=== PATIENT | male | born 1985 | race Caucasian/White ===

== ENCOUNTER 2019-05-07 15:17 | Inpatient (IN) | payer MEDICAID, SELFPAY ==
[2019-05-07] VITALS (14 sets, daily range): BP systolic 116–155; BP diastolic 73–104; PULSE 92–125; RESP 14–22; TEMP 36.3–37.6; O2SAT 94–100; BMI 30.6; BMI 30.7
--- NOTE | 2019-05-07 15:31 | EKG12_ITS ---
Test Reason : OVERDOSE Blood Pressure : / mmHG Vent. Rate : 115 BPM Atrial Rate : 115 BPM P-R Int : 158 ms QRS Dur : 102 ms QT Int : 322 ms P-R-T Axes : 048 013 036 degrees QTc Int : 445 ms Sinus tachycardia Nonspecific T wave abnormality Abnormal ECG Confirmed by MAGDIEL DINERO ([id number]), photo editor TAMIR QUINONEZ ([id number]) on 05/11/2019 1:18:30 PM Referred By: JESSICA Confirmed By:MAGDIEL DINERO
--- NOTE | 2019-05-07 15:32 | NURSING ---
NO OLD EKGS
--- NOTE | 2019-05-07 15:37 | ED.DCSUM_ITS ---
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 Relieved by: Nothing Associated Symptoms: Patient has no complaints Narrative: Patient was recent seen in the emergency room for suicidal ideation and admitted to [facility]. He was released from [facility]. He states he is taken 25 Neurontin in the past with no adverse effect. He states he took the pills today over 4 to 5 hours. He voices no suicidal intent. He does admit he was admitted to [facility] for suicidal ideation. Difficult to assess patient because of his altered mental status and slurred speech. He does arouse to verbal communication. He presently has no complaints. Prior similar symptoms: Yes Recent Illness/Hospitalization: Yes Capacity - Capacity Assessment Tool Can the patient make a choice & communicate that choice?: No Can the patient understand benefits, risks and alternatives?: No - Patient has been told numerous times he cannot receive Ativan because his level of conscious depressed. He is been told he cannot stand because he was found staggering because of the amount of medicine he took. Patient has attempted to negotiate several times and does not comprehend the seriousness of his illness. Can the patient make a logical, rational choice?: No - Should not states because he stayed in bed he deserves Ativan. Is the choice the patient makes consistent w/ their values?: Unable to Determine Is there an impending, emergent risk to the patient?: No Does the patient have an Advance Directive?: No Is there a Surrogate Available?: No i.e. HCPOA: No i.e. close relative (spouse, child, parent, sibling)?: No - Patient is homeless presently residing at the [facility] - Past Medical History (1) Depression with suicidal ideation Status: Acute Past Medical History - Allergies and Home Meds Allergies/Adverse Reactions: Allergies No Known Allergies Allergy (Verified 05/07/19 15:28) Primary Care Physician: Care Physician,No Primary [Primary Care Provider] - Past Medical History: - - Psychiatric illness Lives: Alone, - - Residing at the [facility] Smoking Status: Current every day smoker Alcohol: Rare Drugs: - - Patient denies Review of Systems ROS: Unable to Obtain - Altered level of conscious secondary to accidental ingestion. Patient denies everything. He states his heart rates been up to 170 and I should not be concerned that it is 1 20-1 30. Physical Exam Vital Signs/Narrative: Vital Signs Temp Pulse Resp BP Pulse Ox 05/07/19 15:18 99.7 F H 120 H 22 H 155/92 H 97 05/07/19 15:17 125 H 22 H 155/92 H 97 Inital Vital Signs reviewed: Yes General: Well nourished, Well developed, No Acute Distress Head: Normocephalic, Atraumatic Eyes: Perrl, EOMI, - - Horizontal nystagmus noted. Negative for: Pale conju nctiva, Scleral icterus ENT: No rhinorrhea, TM's clear, Dry mucous membranes Neck: Supple, Nontender Cardiovascular: Regular rhythm, No murmurs, Normal S1, Tachycardia Respiratory: No distress, CTA bilaterally, Chest nontender Abdomen: Soft, Nontender, Nondistended, Normal bowel sounds Rectal: Deferred Back: Nontender, Normal Inspection Extremities: Nontender, No edema Skin: Normal color, No rash Neurological: Cranial nerves II-XII grossly intact, Normal Strength, Normal Sensation, Normal DTR. Negative for: Alert, Oriented x3, Normal Gait Psychological: - - Difficult to assess Diagnostic/Tx/Re-eval - EKG Initial EKG Interpretation: Sinus Tachycardia - Circular rate is 115. CT interval is 158 ms. QRS duration is prolonged at 102 ms. QT duration is 322 with QTC of 445 ms. There are nonspecific ST-T wave changes noted. This is an abnormal EKG. The axis is normal. - Medical Decision Making Since patient is somnolent, tachycardic will obtain screening blood work and EKG. Patient require admission to the hospital for observation since he took 6.8 g of Neurontin. - Critical Care Time Critical care time (excluding procedures): 30-74 minutes, Discussing w/Patient &/or Family/Board Member, Discussing w/Consultants, Arranging Admission or Transfer - She had to be redirected several times. Patient does not have the capacity to sign out AGAINST MEDICAL ADVICE or leave. ED Disposition - Plan for ED Patient: Disposition: Acute Care Hospital [facility] Diagnosis: Overdose of anticonvulsant, Sinus tachycardia by electrocardiogram, Ataxia Referrals: Care Physician,No Primary [Primary Care Provider] -
--- NOTE | 2019-05-07 15:57 | ED.RN ---
PT DENIES BEING SUICIDAL AND REFUSED I.V. AND LAB DRAW. DR. LOPEZ WANTS PT TO BE NPO.
--- NOTE | 2019-05-07 16:09 | CM.ED ---
Social Work Consult: Overdose Informant: Dr. Vidales Chief Complaint: Patient stating to have taken 17 400mg of Neurontin today, all at once. Living Situation: Patient lives with mother Mental Health Treatment/History: Patient reporting to have had a recent stay at [place] for suicidal thoughts. Patient stating to be connected with the counseling center. Patient unable to state name of counselor of psychiatrist. Patient stating that patient mother often calls into [facility] and that is why patient had switched doctors often and does not know patient current doctor. Patient stating that patient mother calls to reporting that patient is abusing the prescribed medications. Substance Abuse Hx: Patient stating to have taken up to 25 Neurontin at one time in the past. Patient stating to take Neurontin every other day as this is the only way to get high. Patient not admitting to any other substance abuse but stating I have taken other things. Patient is not forth coming with defining other things. Appearance/General Behavior: Patient slumped forward in hospital bed during assessment. Mood/Affect: Patient with a flat affect. Communication Pattern: Patient with slurred and unclear speech. Patient would state an answer to a question and then appear to have fallen asleep and wake back up again. Patient laughing at inappropriate times during assessment. Thought Process: Patient appears to be having difficulty following conversation. This social work msw would ask the same question over again and patient would sometimes answer the questions and sometimes not. Patient would then also repeat self during assessment, but denies repeating self throughout assessment. Assessment: Met with patient in room. This social work msw introduced self as well as social work msw role. Patient open to speaking with this social work msw. Patient responding very minimally during assessment. Patient responding to most questions as seen above. Patient denies any suicidal thoughts or attempt. Stating that patient only goal is to get high. Patient stating to not want to complete suicide. Patient just wants to feel good. Patient declining any resources for assistance with substance abuse. Patient denies having any abuse issues. Intervention Social Work assessment. Resources offered for substance abuse, patient declines. Dr. Vidales and nursing staff updated on social work assessment. Andie HERRERA, SABI
[2019-05-07 16:21] LABS: Absolute Lymphocyte Count 1.68 X10^3/uL (0.83-4.51); Absolute Neutrophil Count 6.3 X10^3/uL (2.0-7.7); Basophil# 0.06 X10^3/uL; Basophil% 0.7 % (0-1); Eosinophil# 0.03 X10^3/uL; Eosinophils% 0.4 % (0-5); Hematocrit 40.6 % (40-54); Hemoglobin 14.1 g/dL (13.0-16.5); Lymphocyte # 1.68 X10^3/ul (4.0); Lymphocyte % 19.8 % (19-41); Mean Corp Hgb Conc 34.7 g/dL (32-36); Mean Corpuscular Hgb 30.3 pg (27.0-32.0); Mean Corpuscular Volume 87.1 fL (80-94); Mean Platelet Vol. 10.4 fl (6.2-12.0); Monocyte# 0.42 X10^3/uL; Monocyte% 4.9 % (0-10); NRBC Flagged by Analyzer 0 % (0-5); Neutrophil # 6.27 X10^3/uL (2.7-7.7); Neutrophil % 73.8 % (47-70); Platelet Count 221 K/mm3 (150-450); RBC Distribution Width CV 12.8 % (11.6-14.6); RBC Distribution Width SD 40.7 fl (35.1-43.9); Red Blood Count 4.66 M/mm3 (4.6-6.2); White Blood Count 8.5 K/mm3 (4.4-11.0)
[2019-05-07 16:32] LABS: Anion Gap 8 (5-15); BUN 10 mg/dL (7-18); BUN/Creat Ratio 7.8 RATIO (10-20); Calcium,Total 8.8 mg/dL (8.5-10.1); Chloride 107 mmol/L (98-107); Creatinine, Serum 1.29 mg/dL (0.70-1.30); EST Glomerular Filtration Rate 67 mL/min (>60); Est Glom Filt Rate - Afr Amer 82 mL/min (>60); Estimated Creatinine Clearance 90.33 ml/min; Glucose 118 mg/dL (74-106); Potassium 3.5 mmol/L (3.5-5.1); Sodium Level 142 mmol/L (136-145)
[2019-05-07 16:49] LABS: Alcohol, Blood (Medical)-Serum < 3.0 mg/dL
--- NOTE | 2019-05-07 17:03 | ED.RN ---
PT WAS UP TO BATHROOM W/HUNTER DOMINGUEZ RN, PT REFUSED TO GIVE URINE SPECIMEN, PT BACK TO BED AT THIS TIME.
--- NOTE | 2019-05-07 17:38 | ED.RN ---
PT RESTING QUIETLY IN BED WITH EYES CLOSED, RESPIRATIONS EVEN AND UNLABORED.
--- NOTE | 2019-05-07 18:43 | PCM.HP.STD ---
History of Present Illness Date of Admission: 05/07/19 Chief Complaint: gabapentin overdose The patient is a 34 year old M with a past medical history of depression. He was admitted to the ED on 05/17/2019 after he took an overdose of gabapentin. Patient states he took about 17 pills of Neurontin and thinks that with the 600 mg tablets. He had recently been seen in the ED for suicidal ideation and admitted to [facility] and was subsequently released. He was found to have altered mental status with slurred speech and so was brought into the ED. Patient was quite somnolent but arousable with application of sternal pressure. Patient stated that he has taken up to 25 pills of Neurontin in the past with no side effects. He denied any suicidal or homicidal ideations. Unable to do complaints of review of systems on account of patient's somnolence. In the ED, patient was tachycardic with heart rate of up to 125, mildly elevated temperature of 98.7. CBC was unremarkable and BMP was also unremarkable. He has been admitted to be managed for acute metabolic encephalopathy due to gabapentin overdose. He has been admitted to the ICU for close monitoring. [] Past Medical History Allergies No Known Allergies Allergy (Verified 05/07/19 15:28) Home Medications: Ambulatory Orders Medication Instructions Recorded Carbamazepine [Carbamazepine ER] 400 mg PO BID 05/07/19 Clonidine HCl [Catapres] 0.1 mg PO DAILY 05/07/19 Gabapentin [Neurontin] 400 mg PO TIDCM 05/07/19 buPROPion XL [Wellbutrin Xl] 150 mg PO DAILY 05/07/19 Lives: Alone, - - Residing at the [facility] Smoking Status: Current every day smoker Alcohol: Rare Drugs: - - Patient denies - *Family History Maternal History Items: - - unable to obtain due to somnolence Review of Systems Unable to obtain accurate/complete ROS d/t: patient very somnolent VTE Information - Inpt Only VTE Present on Admission: No VTE Pharm Prophylaxis ordered?: Yes Patient Problems: Active and Suspected Problems Overdose of anticonvulsant (Acute) Sinus tachycardia by electrocardiogram (Acute) Ataxia (Acute) - Physical Exam General: Confused, Disoriented, Lethargic HEENT: Atraumatic, PERRLA, EOMI, Normocephalic, - Oral: Dry Mucosa Neck: Supple, No JVD, Negative Carotid Bruits Lungs: Clear to auscultation, Normal air movement, No rhonchi, No wheeze, No rales Cardiovascular: Normal S1, Normal S2, No murmurs, Tachycardic Abdomen: Bowel Sounds Present, Soft, Non Tender, Non-Distended, No Hepato-splenomegaly Extremities: No clubbing, No cyanosis, No edema, Capillary Refill Less than 3 Seconds Skin: No rashes, No breakdown Musculoskeletal: No Tenderness to Palpation of Joints or Extremities Lymphatic: No Cervical, Supraclavicular, or Inguinal Adenopathy Neurological: Motor Exam 5/5 strength throughout, - - has nystagmus horizontal nystagmus of both eyes. Psych/Mental Status: - - very somnolent, Alert and oriented to time, place, person, mood and affect Vital Signs Temp Pulse Resp BP Pulse Ox 99.7 F H 92 14 117/80 96 05/07/19 15:18 05/07/19 18:00 05/07/19 18:00 05/07/19 18:00 05/07/19 17:00 Oxygen Delivery Method Room Air Weight: 231 lb 14.821 oz Body Mass Index (BMI) 30.6 Laboratory Tests Past 24 Hrs 05/07/19 05/07/19 05/07/19 16:10 16:10 16:10 WBC 8.5 RBC 4.66 Hgb 14.1 Hct 40.6 MCV 87.1 MCH 30.3 MCHC 34.7 RDW Std Deviation 40.7 RDW Coeff of Jayshree 12.8 Plt Count 221 MPV 10.4 Immature Gran % (Auto) 0.400 Neut % (Auto) 73.8 H Lymph % (Auto) 19.8 [place] % (Auto) 4.9 Eos % (Auto) 0.4 Baso % (Auto) 0.7 Absolute Neuts (auto) 6.3 Absolute Lymphs (auto) 1.68 Nucleated RBC % 0 Sodium 142 Potassium 3.5 Chloride 107 Carbon Dioxide 27.0 Anion Gap 8 BUN 10 Creatinine 1.29 Estim Creat Clear Calc 90.33 Est GFR (MDRD) Af Amer 82 Est GFR (MDRD) Non-Af 67 BUN/Creatinine Ratio 7.8 L Glucose 118 H Calcium 8.8 Ethyl Alcohol < 3.0 Assessment/Plan All Active Problems Depression with suicidal ideation (Acute) Overdose of anticonvulsant (Acute) Sinus tachycardia by electrocardiogram (Acute) Ataxia (Acute) 34-year-old male admitted after overdose of gabapentin. 1. Acute metabolic encephalopathy due to gabapentin overdose admit to ICU has nystagmus which is a feature of mild to moderate toxicity of gabapentin hydrate with IVF NS @ 100cc/hr IV zofran prn for nausea patient counselled by ED doctor that he cannot receive ativan or any sedatives o;/a of his sevre lethargy and somnolence consult critical care denies any homicidal or suicidal ideation bed rest for now o/a of risk of ataxia and possible falls low threshold for intubation for airway protection if patient's obtundation worsens 2. Gabapentin overdose: as under 1. 3. Depression; hold antidepressants and carbamazepine as well. DVT prophylaxis: lovenox Code Visit Inpatient E&M: [id number] Init Hosp L3
--- NOTE | 2019-05-07 19:46 | NURSING ---
[facility] [place] PHONE NUMBER
[2019-05-07 20:04] LABS: Amphetamine Urine VISTA NEGATIVE (<1000 ng/mL); Barbiturate Urine VISTA NEGATIVE (< 200 ng/mL); Benzodiazepine Urine VISTA NEGATIVE (< 200 ng/mL); Cocaine Urine VISTA NEGATIVE (< 300 ng/mL); Ecstacy Urine VISTA POSITIVE (< 500 ng/mL); Methadone Urine VISTA NEGATIVE (< 300 ng/mL); PCP Urine VISTA NEGATIVE (< 25 ng/mL); THC Urine VISTA NEGATIVE (< 50 ng/mL); Vista UDS pH Range 6
--- NOTE | 2019-05-07 20:08 | NURSING ---
Pt arrived to room via ED stretcher, walks self to ICU bed 2. Pt argumentative and belligerent w/staff about being in the ICU. Pt requesting cute nurses to feel up on. Pt informed that harassment, both verbal and sexual, will not be tolerated at this facility. Pt's attitude toward staff changes and apologizes.
[2019-05-07] MEDS: 0.9% Normal Saline 1,000 ML 125 ML IV (20:38)
--- NOTE | 2019-05-07 20:55 | NURSING ---
Pt cussing and becoming loud, concerns addressed and pt needs conveyed by text to . Pt requesting home meds as per list.
--- NOTE | 2019-05-07 21:30 | NURSING ---
Pt expresses displeasure when told that doctors will not be ordering his routine medicines. Exclaims that's fucked up. Let me talk to that son of a bitching doctor. Pt reminded that foul behaviour will not bring about gratification any sooner. Pt apologizes again and states I just can't help my outbursts sometimes.
--- NOTE | 2019-05-07 22:10 | NURSING ---
Pt requesting nurses' names on the unit, all the cute ones. Pt advised against harassment and informed that staff will address his medical needs as they occur.
[2019-05-08] VITALS (9 sets, daily range): BP systolic 115–138; BP diastolic 70–96; PULSE 82–99; RESP 15–19; TEMP 36.2–36.6; O2SAT 96–99
[2019-05-08 01:45] LABS: Carbamazepine (Tegretol) 14.1 ug/mL (4.0-12.0)
[2019-05-08] MEDS: 0.9% Normal Saline 1,000 ML 125 ML IV (03:57)
[2019-05-08 04:12] LABS: Absolute Lymphocyte Count 2.62 X10^3/uL (0.83-4.51); Absolute Neutrophil Count 4.4 X10^3/uL (2.0-7.7); Basophil# 0.03 X10^3/uL; Basophil% 0.4 % (0-1); Eosinophil# 0.21 X10^3/uL; Eosinophils% 2.6 % (0-5); Hematocrit 38.6 % (40-54); Hemoglobin 13.2 g/dL (13.0-16.5); Lymphocyte # 2.62 X10^3/ul (4.0); Lymphocyte % 32.8 % (19-41); Mean Corp Hgb Conc 34.2 g/dL (32-36); Mean Corpuscular Hgb 30.1 pg (27.0-32.0); Mean Corpuscular Volume 87.9 fL (80-94); Mean Platelet Vol. 10.8 fl (6.2-12.0); Monocyte# 0.66 X10^3/uL; Monocyte% 8.3 % (0-10); NRBC Flagged by Analyzer 0 % (0-5); Neutrophil # 4.44 X10^3/uL (2.7-7.7); Neutrophil % 55.6 % (47-70); Platelet Count 206 K/mm3 (150-450); RBC Distribution Width CV 12.9 % (11.6-14.6); RBC Distribution Width SD 41.2 fl (35.1-43.9); Red Blood Count 4.39 M/mm3 (4.6-6.2)
[2019-05-08 04:26] LABS: ALB/GLOB Ratio 1.1 RATIO (0.9-2.4); AST(SGOT) 19 U/L (15-37); Alanine Aminotransfer ALT/SGPT 59 U/L (16-61); Albumin, Serum 3.3 g/dL (3.2-5.0); Alkaline Phosphatase 49 U/L (45-117); Anion Gap 7 (5-15); BUN 14 mg/dL (7-18); BUN/Creat Ratio 14.1 RATIO (10-20); Calcium,Total 8.2 mg/dL (8.5-10.1); Chloride 113 mmol/L (98-107); Creatinine, Serum 0.99 mg/dL (0.70-1.30); EST Glomerular Filtration Rate 91 mL/min (>60); Est Glom Filt Rate - Afr Amer 111 mL/min (>60); Globulin 2.9 g/dL (2.2-4.2); Glucose 92 mg/dL (74-106); Potassium 3.6 mmol/L (3.5-5.1); Protein, Total 6.2 g/dL (6.4-8.2); Sodium Level 147 mmol/L (136-145)
--- NOTE | 2019-05-08 05:35 | NURSING ---
Pt apologized to all nrsg staff on floor for his vulgarities and behaviors this last evening.
--- NOTE | 2019-05-08 08:09 | PCM.DC ---
- Discharge Diagnoses Current Active Problems: Current Active and Chronic Problems Overdose of anticonvulsant (Acute) Sinus tachycardia by electrocardiogram (Acute) Ataxia (Acute) You will use the following diet at home:: Regular Your food should be the consistency of: Regular Discharge Activity: May Not Drive Call your doctor if you observe: Fever of 101 or Higher, Numbness or Tingling, Change in Color, Inability to urinate, Inability to have a bowel movement, Shortness of breath, Dizziness, Fainting spells, Swelling in the ankles, Chest pain, Prolonged hiccoughing, Increased palpitations (irregular heartbeat), Calf discomfort, Uncontrolled pain Additional Instructions: Follow with psychiatrist Dr. Patel, [phone] Allergies/Adverse Reactions: Allergies No Known Allergies Allergy (Verified 05/07/19 15:28) Medications to take at Discharge Clonidine HCl [Catapres] 0.1 mg PO DAILY 05/07/19 Gabapentin [Neurontin] 400 mg PO TIDCM 05/07/19 Carbamazepine [Carbamazepine ER] 600 mg PO BID #0 05/08/19 buPROPion XL [Wellbutrin Xl] 150 mg PO DAILY #30 tablet.xl 05/08/19 The following prescriptions were given: buPROPion XL [Wellbutrin Xl] 150 mg PO DAILY #30 tablet.xl Transmission Status: Received by [id number] Primary Care Physician: Care Physician,No Primary [Primary Care Provider] - Please follow up with your Primary Care Physician in: [place] 1 Week Test Results: Test results from this visit will be discussed in further detail at your follow-up appointment, if applicable.
--- NOTE | 2019-05-08 08:11 | PCM.DC.SUM ---
Discharge Date and Diagnosis Date of Admission: 05/07/19 Date of Discharge: 05/08/19 - Primary Discharge Diagnosis Active and Suspected Problems Overdose of anticonvulsant (Acute) Sinus tachycardia by electrocardiogram (Acute) Ataxia (Acute) Hospital Course and Treatment Summary of Care Provided: The patient is a 34 year old M with history of depression, polysubstance use including prescription and street drugs, Percocet, heroine, methamphetamine, crack cocaine was admitted on 05/07/2019 after overdose of gabapentin. Patient denies suicidal ideation/suicidal attempt. Patient was recently seen for suicidal ideation and admitted to [facility] where he was discharged in the morning of same day of admission here. Patient took about 17 pills of 600 mg Neurontin. Patient was found somnolent but arousable with a sternal pressure in ED. He also had slurred speech. Prior to that he overdosed with 25 pills of Neurontin's with no side effects. In ER, patient was tachycardic, heart rate 125, temperature 98.7. As per EMS blood pressure was 170/100. Respiratory rate 20. Heart rate 80/min. Blood glucose 101. Pulse ox 98%. The patient was further admitted in ICU for gabapentin overdose. Patient was treated with carbamazepine and [facility] and was discharged on carbamazepine ER 600 mg twice daily but he did not fill the prescription. Carbamazepine level found 14.1, elevated with normal between 4 to 12 mcg/mL. U tox positive of methamphetamine. Alcohol level negative. LFTs are normal. EKG sinus tachycardia at 115 bpm. QTc 445 ms. QRS 102 ms Patient was found horizontal nystagmus probably side effect/toxicity of gabapentin Patient was managed conservatively in ICU with IV fluid normal saline and supportive management Zofran as needed for nausea. EKG shows normal sinus rhythm. As the patient denies suicidal ideation/homicidal or suicidal attempt at this time he is hemodynamically stable. Patient is being discharged home. Patient was advised to hold carbamazepine for 5 days and follow-up with the serum level of carbamazepine and then start carbamazepine if level normal Discharge medication reconciliation done. Prescription for Wellbutrin ER 150 mg sent to patient's pharmacy. Patient was admitted as inpatient but was discharged because of sooner recovery than expected. Discharge medication reconciliation done. Discharge follow-up instructions completed. Discharge process discussed with the patient and all questions were answered to patient's satisfaction. Total time spent, exact 35 minutes on discharge meds reconciliation, examination, review of imaging and blood test and discussion with the patient on follow-up instructions. Laboratory Results 05/07/19 16:10: WBC 8.5, RBC 4.66, Hgb 14.1, Hct 40.6, MCV 87.1, MCH 30.3, MCHC 34.7, RDW Std Deviation 40.7, RDW Coeff of Jayshree 12.8, Plt Count 221, MPV 10.4, Immature Gran % (Auto) 0.400, Neut % (Auto) 73.8 H, Lymph % (Auto) 19.8, [place] % (Auto) 4.9, Eos % (Auto) 0.4, Baso % (Auto) 0.7, Absolute Neuts (auto) 6.3, Absolute Lymphs (auto) 1.68, Nucleated RBC % 0 05/07/19 16:10: Sodium 142, Potassium 3.5, Chloride 107, Carbon Dioxide 27.0, Anion Gap 8, BUN 10, Creatinine 1.29, Estim Creat Clear Calc 90.33, Est GFR (MDRD) Af Amer 82, Est GFR (MDRD) Non-Af 67, BUN/Creatinine Ratio 7.8 L, Glucose 118 H, Calcium 8.8 05/07/19 16:10: Ethyl Alcohol < 3.0 05/07/19 19:10: Urine Opiates Screen NEGATIVE, Urine Methadone Screen NEGATIVE, Ur Barbiturates Screen NEGATIVE, Ur Phencyclidine Scrn NEGATIVE, Ur Amphetamines Screen NEGATIVE, U Methamphetamin-MDMA POSITIVE H, U Benzodiazepines Scrn NEGATIVE, Urine Cocaine Screen NEGATIVE, U Cannabinoids Screen NEGATIVE, Ur Drug Screen Comment 05/08/19 00:05: Carbamazepine 14.1 H* 05/08/19 03:55: WBC 8.0, RBC 4.39 L, Hgb 13.2, Hct 38.6 L, MCV 87.9, MCH 30.1, MCHC 34.2, RDW Std Deviation 41.2, RDW Coeff of Jayshree 12.9, Plt Count 206, MPV 10.8, Immature Gran % (Auto) 0.300, Neut % (Auto) 55.6, Lymph % (Auto) 32.8, [place] % (Auto) 8.3, Eos % (Auto) 2.6, Baso % (Auto) 0.4, Absolute Neuts (auto) 4.4, Absolute Lymphs (auto) 2.62, Nucleated RBC % 0 05/08/19 03:55: Sodium 147 H, Potassium 3.6, Chloride 113 H, Carbon Dioxide 27.0, Anion Gap 7, BUN 14, Creatinine 0.99, Estim Creat Clear Calc 117.70, Est GFR (MDRD) Af Amer 111, Est GFR (MDRD) Non-Af 91, BUN/Creatinine Ratio 14.1, Glucose 92, Calcium 8.2 L, Total Bilirubin 0.20, AST 19, ALT 59, Alkaline Phosphatase 49, Total Protein 6.2 L, Albumin 3.3, Globulin 2.9, Albumin/Globulin Ratio 1.1 [] Subjective: Seen and examined. Patient has recurrent history of overdose mainly IV heroin, Percocet, crack cocaine and methamphetamine and Neurontin in the past in order to get high. This time he was discharged from [facility] on 05/07 morning and it took Neurontin overdose and therefore got admitted. Today, he denies chest pain, shortness of breath, flutter or irregular heartbeats, dizziness. He wants to go home. - Physical Exam General: Alert, Oriented x3, Cooperative HEENT: Atraumatic, PERRLA, EOMI, Normocephalic Neck: Supple, No JVD, Negative Carotid Bruits Lungs: Clear to auscultation, Normal air movement, No rhonchi, No wheeze, No rales Cardiovascular: Regular rate, Regular Rhythm, Normal S1, Normal S2, No murmurs Abdomen: Bowel Sounds Present, Soft, Non Tender, Non-Distended Extremities: No edema, Capillary Refill Less than 3 Seconds Skin: No rashes, No breakdown Musculoskeletal: No Tenderness to Palpation of Joints or Extremities, Arthritic Changes Neurological: Cranial nerves II-XII grossly intact, Neuro grossly intact, - - Hyperreflexia in ankle and knee reflex 3/4 Psych/Mental Status: Normal Affect, Appropriate Vital Signs Temp Pulse Resp BP Pulse Ox 98 F 96 16 138/96 H 96 05/08/19 08:00 05/08/19 08:00 05/08/19 08:00 05/08/19 08:00 05/08/19 08:00 Oxygen Delivery Method Room Air Weight: 233 lb 7.512 oz Body Mass Index (BMI) 30.7 Intake and Output for Last 24 Hours 05/06/19 05/07/19 05/08/19 23:59 23:59 23:59 Intake Total 2496 / 2496 Balance 2496 / 2496 Laboratory Tests Past 24 Hrs 05/07/19 05/07/19 05/07/19 16:10 16:10 16:10 WBC 8.5 RBC 4.66 Hgb 14.1 Hct 40.6 MCV 87.1 MCH 30.3 MCHC 34.7 RDW Std Deviation 40.7 RDW Coeff of Jayshree 12.8 Plt Count 221 MPV 10.4 Immature Gran % (Auto) 0.400 Neut % (Auto) 73.8 H Lymph % (Auto) 19.8 [place] % (Auto) 4.9 Eos % (Auto) 0.4 Baso % (Auto) 0.7 Absolute Neuts (auto) 6.3 Absolute Lymphs (auto) 1.68 Nucleated RBC % 0 Sodium 142 Potassium 3.5 Chloride 107 Carbon Dioxide 27.0 Anion Gap 8 BUN 10 Creatinine 1.29 Estim Creat Clear Calc 90.33 Est GFR (MDRD) Af Amer 82 Est GFR (MDRD) Non-Af 67 BUN/Creatinine Ratio 7.8 L Glucose 118 H Calcium 8.8 Total Bilirubin AST ALT Alkaline Phosphatase Total Protein Albumin Globulin Albumin/Globulin Ratio Urine Opiates Screen Urine Methadone Screen Ur Barbiturates Screen Carbamazepine Ur Phencyclidine Scrn Ur Amphetamines Screen U Methamphetamin-MDMA U Benzodiazepines Scrn Urine Cocaine Screen U Cannabinoids Screen Ur Drug Screen Comment Ethyl Alcohol < 3.0 05/07/19 05/08/19 05/08/19 19:10 00:05 03:55 WBC 8.0 RBC 4.39 L Hgb 13.2 Hct 38.6 L MCV 87.9 MCH 30.1 MCHC 34.2 RDW Std Deviation 41.2 RDW Coeff of Jayshree 12.9 Plt Count 206 MPV 10.8 Immature Gran % (Auto) 0.300 Neut % (Auto) 55.6 Lymph % (Auto) 32.8 [place] % (Auto) 8.3 Eos % (Auto) 2.6 Baso % (Auto) 0.4 Absolute Neuts (auto) 4.4 Absolute Lymphs (auto) 2.62 Nucleated RBC % 0 Sodium Potassium Chloride Carbon Dioxide Anion Gap BUN Creatinine Estim Creat Clear Calc Est GFR (MDRD) Af Amer Est GFR (MDRD) Non-Af BUN/Creatinine Ratio Glucose Calcium Total Bilirubin AST ALT Alkaline Phosphatase Total Protein Albumin Globulin Albumin/Globulin Ratio Urine Opiates Screen NEGATIVE Urine Methadone Screen NEGATIVE Ur Barbiturates Screen NEGATIVE Carbamazepine 14.1 H* Ur Phencyclidine Scrn NEGATIVE Ur Amphetamines Screen NEGATIVE U Methamphetamin-MDMA POSITIVE H U Benzodiazepines Scrn NEGATIVE Urine Cocaine Screen NEGATIVE U Cannabinoids Screen NEGATIVE Ur Drug Screen Comment Ethyl Alcohol 05/08/19 03:55 WBC RBC Hgb Hct MCV MCH MCHC RDW Std Deviation RDW Coeff of Jayshree Plt Count MPV Immature Gran % (Auto) Neut % (Auto) Lymph % (Auto) [place] % (Auto) Eos % (Auto) Baso % (Auto) Absolute Neuts (auto) Absolute Lymphs (auto) Nucleated RBC % Sodium 147 H Potassium 3.6 Chloride 113 H Carbon Dioxide 27.0 Anion Gap 7 BUN 14 Creatinine 0.99 Estim Creat Clear Calc 117.70 Est GFR (MDRD) Af Amer 111 Est GFR (MDRD) Non-Af 91 BUN/Creatinine Ratio 14.1 Glucose 92 Calcium 8.2 L Total Bilirubin 0.20 AST 19 ALT 59 Alkaline Phosphatase 49 Total Protein 6.2 L Albumin 3.3 Globulin 2.9 Albumin/Globulin Ratio 1.1 Urine Opiates Screen Urine Methadone Screen Ur Barbiturates Screen Carbamazepine Ur Phencyclidine Scrn Ur Amphetamines Screen U Methamphetamin-MDMA U Benzodiazepines Scrn Urine Cocaine Screen U Cannabinoids Screen Ur Drug Screen Comment Ethyl Alcohol Discharge Activity: May Not Drive Call your doctor if you observe: Fever of 101 or Higher, Numbness or Tingling, Change in Color, Inability to urinate, Inability to have a bowel movement, Shortness of breath, Dizziness, Fainting spells, Swelling in the ankles, Chest pain, Prolonged hiccoughing, Increased palpitations (irregular heartbeat), Calf discomfort, Uncontrolled pain Home Medications: Medications to take at Discharge Clonidine HCl [Catapres] 0.1 mg PO DAILY 05/07/19 Gabapentin [Neurontin] 400 mg PO TIDCM 05/07/19 Carbamazepine [Carbamazepine ER] 600 mg PO BID #0 05/08/19 buPROPion XL [Wellbutrin Xl] 150 mg PO DAILY #30 tablet.xl 05/08/19 Following Prescrptions Were Given to Patient: buPROPion XL [Wellbutrin Xl] 150 mg PO DAILY #30 tablet.xl Transmission Status: Received by [id number] Primary Care Physician: Care Physician,No Primary [Primary Care Provider] - Please follow up with your Primary Care Physician in: [place] 1 Week Medical Necessity - Tobacco Use Smoking Status: Current every day smoker Tobacco Use: Cigarettes Meaningful Use Info Meaningful Use Diagnoses (Choose all that apply): None applicable Code Visit Inpatient E&M: 87235 Disch Hosp
== END 2019-05-08 08:25 | disposition home or self-care (01) | DRG 917 ==
LOC: ED 18:46 → ICU 19:26
PROVIDERS: Hospitalist; Admitting Provider Student in an Organized Health Care Education/Training Program; Emergency Provider Emergency Medicine; Visit Provider Internal Medicine
DX: T42.6X1A Poisoning by other antiepileptic and sedative-hypnotic drugs, accidental (unintentional), initial encounter (principal); G92 Toxic encephalopathy; R00.0 Tachycardia, unspecified; R27.0 Ataxia, unspecified; R47.81 Slurred speech
CPT/HCPCS: 80048; 80053; 80156; 80307; 80320; 85025; 93005; 99285; J7030; G0480

== ENCOUNTER 2019-05-09 23:46 | Emergency (ER) | payer MEDICAID, SELFPAY ==
[2019-05-09 23:46] VITALS: BMI 30.6
[2019-05-09 23:47] VITALS: BP 140/93; PULSE 85; RESP 17; O2SAT 100
[2019-05-09 23:48] VITALS: BP 144/140; PULSE 82; RESP 18; TEMP 36.4; O2SAT 96; BMI 30.7
--- NOTE | 2019-05-09 23:55 | ED.DCSUM_ITS ---
- ER Visit Summary Date of Service: 05/09/19 Chief Complaint: Suicidal ideation History of Present Illness: The patient is a 34 M who complains of being suicidal tonight. He states he is sick of the bullshit. He got kicked out of the [employer]. He went to a gas station and told the postal service clerk that he was trying to find razor blades to cut himself. He states he has no money to buy drugs to overdose. However, he then told nursing that he did take Suboxone today. He has a history of multiple psychiatric admissions. He was just discharged from [facility] 3 days ago. He states he has been medication compliant with his psychiatric medications. Physical Examination: Vital signs reviewed. HEENT exam unremarkable. Heart is regular rate and rhythm without murmurs. Lungs are clear to auscultation. Abdomen is soft and nontender. Extremities reveal no edema. Skin exam normal. Neurologic exam normal. Patient has a flat affect but does voice suicidal thoughts. Test Results: Laboratory studies unremarkable except for glucose of 134. Tox screen reveals methamphetamines Emergency Department Course and Treatment: Patient is medically cleared. He will need to be evaluated by psychiatric services. His disposition is pending their evaluation Treatment Plan: [] Disposition: Pending psychiatric evaluation Impression: Suicidal ideation This note was generated with [employer] dictation software. It may contain incorrect words, spelling, and punctuation that were not noted in review of the chart prior to signing ED Disposition - Plan for ED Patient: Referrals: Care Physician,No Primary [Primary Care Provider] -
[2019-05-10] VITALS (14 sets, daily range): BP systolic 112–161; BP diastolic 67–112; PULSE 65–90; RESP 14–20; O2SAT 95–100
[2019-05-10 01:09] LABS: Absolute Lymphocyte Count 1.68 X10^3/uL (0.83-4.51); Absolute Neutrophil Count 7.9 X10^3/uL (2.0-7.7); Basophil# 0.06 X10^3/uL; Basophil% 0.6 % (0-1); Eosinophil# 0.13 X10^3/uL; Eosinophils% 1.2 % (0-5); Hematocrit 40.7 % (40-54); Hemoglobin 14.1 g/dL (13.0-16.5); Lymphocyte # 1.68 X10^3/ul (4.0); Mean Corp Hgb Conc 34.6 g/dL (32-36); Mean Corpuscular Hgb 30.2 pg (27.0-32.0); Mean Corpuscular Volume 87.2 fL (80-94); Mean Platelet Vol. 10.4 fl (6.2-12.0); Monocyte# 0.67 X10^3/uL; Monocyte% 6.4 % (0-10); NRBC Flagged by Analyzer 0 % (0-5); Neutrophil # 7.92 X10^3/uL (2.7-7.7); Neutrophil % 75.5 % (47-70); Platelet Count 239 K/mm3 (150-450); RBC Distribution Width CV 13.1 % (11.6-14.6); RBC Distribution Width SD 41.8 fl (35.1-43.9); Red Blood Count 4.67 M/mm3 (4.6-6.2); White Blood Count 10.5 K/mm3 (4.4-11.0)
[2019-05-10 01:23] LABS: Anion Gap 5 (5-15); BUN 11 mg/dL (7-18); BUN/Creat Ratio 11.2 RATIO (10-20); Chloride 106 mmol/L (98-107); Creatinine, Serum 0.98 mg/dL (0.70-1.30); EST Glomerular Filtration Rate 92 mL/min (>60); Est Glom Filt Rate - Afr Amer 111 mL/min (>60); Glucose 139 mg/dL (74-106); Potassium 3.5 mmol/L (3.5-5.1); Sodium Level 139 mmol/L (136-145)
[2019-05-10 04:32] LABS: Amphetamine Urine VISTA NEGATIVE (<1000 ng/mL); Barbiturate Urine VISTA NEGATIVE (< 200 ng/mL); Benzodiazepine Urine VISTA NEGATIVE (< 200 ng/mL); Cocaine Urine VISTA NEGATIVE (< 300 ng/mL); Ecstacy Urine VISTA POSITIVE (< 500 ng/mL); Methadone Urine VISTA NEGATIVE (< 300 ng/mL); PCP Urine VISTA NEGATIVE (< 25 ng/mL); THC Urine VISTA NEGATIVE (< 50 ng/mL); Vista UDS pH Range 6
--- NOTE | 2019-05-10 04:47 | NURSING ---
called crisis at 0732
[2019-05-10] MEDS: MELATONIN 3 MG TABLET PO (05:27)
[2019-05-10] MEDS: Ibuprofen 600 MG Tablet PO (05:28)
--- NOTE | 2019-05-10 07:25 | ED.RN ---
PT UPSET BECAUSE MALE SITTER ESCORTED PT TO RESTROOM. PT BEGAN ARGUING WITH STAFF AND SHOVED SITTER. OBTAINED ORDER FOR FRANCISCO RIVERA FROM , PT AGREED TO BE MEDICATED. PD AND SECURITY CALLED AND AT BEDSIDE. PT CONTINUES TO ARGUE WITH PD AND STAFF.
[2019-05-10] MEDS: Ziprasidone IM 20 MG/ML VIAL IM (07:32)
--- NOTE | 2019-05-10 07:44 | ED.RN ---
SEE PREVIOUS NOTE DOCUMENTED BY RN. PD AND SECURITY AT BEDSIDE.
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
--- NOTE | 2019-05-10 10:27 | EKG12_ITS ---
Test Reason : MEDICAL CLEARANCE Blood Pressure : / mmHG Vent. Rate : 063 BPM Atrial Rate : 063 BPM P-R Int : 150 ms QRS Dur : 094 ms QT Int : 412 ms P-R-T Axes : 066 035 030 degrees QTc Int : 421 ms Normal sinus rhythm Normal ECG Confirmed by MARY WALKER, DEEPTI ([id number]), assistant production editor ZULEYMA NYE ([id number]) on 05/18/2019 1:26:45 PM Referred By: CHAS Confirmed By:AL HERNANDEZ MD
[2019-05-10 12:23] LABS: AST(SGOT) 28 U/L (15-37); Alanine Aminotransfer ALT/SGPT 66 U/L (16-61); Alkaline Phosphatase 66 U/L (45-117); Bilirubin, Direct 0.11 mg/dL (0.00-0.30); Globulin 3.3 g/dL (2.2-4.2); Protein, Total 7.3 g/dL (6.4-8.2)
[2019-05-10] MEDS: buPROPion (XL) 150 MG TABLET.XL PO (15:36)
--- NOTE | 2019-05-10 15:54 | ED.RN ---
PER STERLING WITH CRISIS; [facility] IS TRYING TO GET THE PT ACCEPTED AND DIVERTED TO ANOTHER FACILITY UNTIL THEY HAVE SPACE THERE FOR THIS PT. [facility]; CRISIS IS AWARE
[2019-05-10] MEDS: Gabapentin 400 MG Capsule PO (16:06)
[2019-05-10 16:34] LABS: Red Blood Cells-Urine 0 SEEN /hpf (0-5); Squamous Epithelial Cells - UA 0 SEEN /hpf (0-5)
[2019-05-10 16:36] LABS: Color, Urine Yellow (Yellow); Glucose, Dipstick Normal (Normal); Ketone-Dipstick 5 mg/dl (Negative); Leukocyte Esterase-Dipstick 25 /ul (Negative); Nitrite-Dipstick Negative (Negative); Occult Blood-Urine Negative /ul (Negative); Protein-Dipstick 15 mg/dl (Negative); Urine Bilirubin Dipstick Negative (Negative); Urine Clarity Clear (Clear); Urine Urobilinogen Normal (Normal)
[2019-05-10 16:42] LABS: Bacteria RARE /hpf (None Seen); Hyaline Cast 0-5 SEEN /lpf (0-5); Mucous, Urine 3+ /hpf (<or=2+); White Blood Cells 0-5 SEEN /hpf (0-5)
== END 2019-05-10 19:52 ==
PROVIDERS: Emergency Medicine; Emergency Provider Emergency Medicine
DX: R45.851 Suicidal ideations (principal); R45.1 Restlessness and agitation
CPT/HCPCS: 36415; 80048; 80076; 80307; 80320; 81001; 85025; 93005; 96372; 99284; G0480; J3486

== ENCOUNTER 2021-06-12 21:06 | Observation (INO) | payer MEDICAID, SELFPAY ==
[2021-06-12 21:06] VITALS: BP 118/76; PULSE 82; RESP 16; TEMP 36.8; BMI 29.8
--- NOTE | 2021-06-12 21:21 | CM.ED ---
SW Note SW called [facility]. They do not have detox program there anymore. Referred to [facility] is [phone] Bren SANCHEZ
--- NOTE | 2021-06-12 22:20 | CM.ED ---
Addendum entered by Bren Smith 06/12/21 22:34: ANUPAM called Treatment Navigator and spoke to SHAHLA Euceda from [facility]. Ok will follow up in the morning. Plan: Ramp program Bren SANCHEZ Original Note: ANUPAM Note ANUPAM spoke to Saeed Castellanos from [facility] in [place]. 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 He said that patient was accepted at [facility] today but used so they were unable to show up for the program. Saeed said that patient has had 16 different programs that he has been in and he feels that he will be able to get patient aftercare but needs place for patient tonight. He said that patient could go back to his mothers or put him up in a hotel but he is fearful that we might lose him. ANUPAM discussed [employer], [facility] and [facility] in [place] as facilities that do detox and can provide the same level of care at [facility]. Saeed said that he will be able to get patient in treatment but needs place for patient tonight. NAUPAM and residential collections Kp reviewed the RAMP program rules and patient voiced he wants to participate in [facility] Ramp program. Patient reports use of heroin and occasional crack use. Reports 1 gram a day. CM reports meth use. Patient reports last use was a few hours ago. Patient ANUPAM called [facility] Treatment Navigator and updated her. Plan: Ramp Bren Al[employer]der [employer] SANCHEZ
[2021-06-12 22:43] LABS: Absolute Lymphocyte Count 2.67 X10^3/uL (0.83-4.51); Basophil# 0.07 X10^3/uL; Basophil% 0.4 % (0-1); Eosinophil# 0.32 X10^3/uL; Hematocrit 36.7 % (40-54); Hemoglobin 12.6 g/dL (13.0-16.5); Lymphocyte # 2.67 X10^3/ul (0.83-4.51); Lymphocyte % 16.5 % (19-41); Mean Corp Hgb Conc 34.3 g/dL (32-36); Mean Corpuscular Hgb 27.9 pg (27.0-32.0); Mean Corpuscular Volume 81.2 fL (80-94); Mean Platelet Vol. 11.1 fl (6.2-12.0); Monocyte# 1.07 X10^3/uL; Monocyte% 6.6 % (0-10); NRBC Flagged by Analyzer 0 % (0-5); Neutrophil # 11.98 X10^3/uL (2.7-7.7); Neutrophil % 74.1 % (47-70); Platelet Count 206 K/mm3 (150-450); RBC Distribution Width CV 14.2 % (11.6-14.6); RBC Distribution Width SD 41.8 fl (35.1-43.9); Red Blood Count 4.52 M/mm3 (4.6-6.2); White Blood Count 16.2 K/mm3 (4.4-11.0)
[2021-06-12 22:59] LABS: Anion Gap 8 (5-15); BUN 22 mg/dL (7-18); BUN/Creat Ratio 18.3 RATIO (10-20); Calcium,Total 8.8 mg/dL (8.5-10.1); Chloride 103 mmol/L (98-107); EST Glomerular Filtration Rate 72 mL/min (>60); Est Glom Filt Rate - Afr Amer 88 mL/min (>60); Estimated Creatinine Clearance 92.51 ml/min; Glucose 122 mg/dL (74-106); Potassium 3.5 mmol/L (3.5-5.1); Sodium Level 137 mmol/L (136-145)
[2021-06-12 23:04] LABS: Alcohol, Blood (Medical)-Serum < 3.0 mg/dL
[2021-06-12 23:22] LABS: Amphetamine Urine VISTA POSITIVE (<1000 ng/mL); Barbiturate Urine VISTA NEGATIVE (< 200 ng/mL); Benzodiazepine Urine VISTA NEGATIVE (< 200 ng/mL); Cocaine Urine VISTA POSITIVE (< 300 ng/mL); Ecstacy Urine VISTA POSITIVE (< 500 ng/mL); Methadone Urine VISTA NEGATIVE (< 300 ng/mL); PCP Urine VISTA NEGATIVE (< 25 ng/mL); THC Urine VISTA NEGATIVE (< 50 ng/mL); Vista UDS pH Range 5
--- NOTE | 2021-06-12 23:37 | EX.ED.SAOD ---
HPI History of Present Illness Chief Complaint: Substance Abuse Informant: patient Narrative Narrative: Patient presenting wanting detox from opiates. He has been using constantly IV heroin for the past 2 weeks. Simultaneous, he has continued his Suboxone therapy which he is on for same. He stopped taking it several days ago. His last heroin use was a couple hours ago and he has no withdrawal symptoms right now. He denies any suicidal ideation, recent illness, history of Covid. He has not been vaccinated against Covid. Last was in detox 5 months ago or so. [facility] Medical History (Updated 06/13/21 @ 00:00 by Background Daemon) ADHD Anxiety Home Medications clonidine HCl 0.1 mg PO DAILY 05/07/19 [History Last Taken 1 Day Ago ~05/09/19] gabapentin 400 mg PO TIDCM 05/07/19 [History Last Taken 1 Day Ago ~05/09/19] bupropion HCl 150 mg PO BID 05/10/19 [History Last Taken 1 Day Ago ~05/09/19] carbamazepine 800 mg PO BID 05/10/19 [History Last Taken 1 Day Ago ~05/09/19] Allergy/AdvReac Type Severity Reaction Status Date / Time Penicillins AdvReac Upset Verified 05/10/19 00:04 Stomach Social History (Updated 06/12/21 @ 23:[address] Luis Armando Oro MD) Smoking Status: Current every day smoker substance use type: heroin and IV drugs ROS ROS ED Constitutional Constitutional ED: Denies chills or fever(s) Eyes Eyes: Denies change in vision or diplopia ENT ENT ED: Denies rhinorrhea or sore throat Cardiovascular Cardiovascular: Denies chest pain or palpitations Respiratory/Chest Respiratory/Chest: Denies cough or dyspnea Gastrointestinal Gastrointestinal: Denies abdominal pain, diarrhea, nausea or vomiting Genitourinary Genitourinary ED: Denies dysuria or hematuria Musculoskeletal Musculoskeletal: Denies back pain or neck pain Integumentary Denies abscess or rash Neurologic Neurologic: Denies headache(s), paresthesias or weakness Psychiatric Psychiatric: Denies anxiety or suicidal thoughts EXAM Physical Exam Const Vital Signs: 06/12/21 21:06 Temperature 98.3 F Temperature Source Temporal Pulse Rate 82 Respiratory Rate 16 Blood Pressure 118/76 Blood Pressure Mean 90 Oxygen Delivery Method Room Air Positive well nourished and well developed General Appearance ED: well developed and NAD HEENT Reports moist mucous membranes normocephalic and atraumatic Eyes PERRL and EOMs intact bilaterally Neck full ROM, supple and thyroid normal Resp normal respiratory effort and clear to auscultation bilaterally Cardio regular rate, regular rhythm and no murmurs GI non-tender and non-distended Auscultation: normoactive bowel sounds Palpation: soft Back/Spine no CVA tenderness General Back: other FROM Extremity normal to inspection General Extremety ED: Negative for edema, pulses abnormal or tenderness General Extremity: Negative for edema or pulses abnormal Neuro oriented x3, CN's II-XII intact bilaterally and no sensory deficits noted Sensorium / Orientation: awake and alert Motor Exam: strength 5/5 throughout Skin no rashes or lesions noted and no wounds MDM MDM MDM Narrative Medical decision making narrative: Labs noted, patient does not appear to have any acute infection although he has a leukocytosis, I suspect is from the cocaine that showed up in his urine. He did do cocaine knowingly, injected also. He is medically clinically and hemodynamically stable at this time, will discuss with hospitalist for detox admission. While the patient went to the restroom he was near an extended period of time, nurses checked on him and there were drug paraphernalia fell out of his pants and they thought he was injecting in the bathroom although that turned out not to be the case. However, he was more lethargic than he was earlier, and when I checked on him in the room, he had a hard time keeping his eyes open and maintaining a good level of alertness so we gave him 1 mg of Narcan inhaled. This did help a little. Prior to admission we will monitor the patient here with regards to his respiratory rate and pulse oximetry to ensure stability prior to admission. Lab Data Attestation: I reviewed the patient's lab results. Labs: Laboratory Results - last 24 hr 06/12/21 06/12/21 06/12/21 22:27 22:27 22:27 WBC 16.2 H RBC 4.52 L Hgb 12.6 L Hct 36.7 L MCV 81.2 MCH 27.9 MCHC 34.3 RDW Std Deviation 41.8 RDW Coeff of Jayshree 14.2 Plt Count 206 MPV 11.1 Immature Gran % (Auto) 0.400 Neut % (Auto) 74.1 H Lymph % (Auto) 16.5 L [place] % (Auto) 6.6 Eos % (Auto) 2.0 Baso % (Auto) 0.4 Absolute Neuts (auto) 12.0 H Absolute Lymphs (auto) 2.67 Nucleated RBC % 0 Sodium 137 Potassium 3.5 Chloride 103 Carbon Dioxide 26.0 Anion Gap 8 BUN 22 H Creatinine 1.20 Estim Creat Clear Calc 92.51 Est GFR (MDRD) Af Amer 88 Est GFR (MDRD) Non-Af 72 BUN/Creatinine Ratio 18.3 Glucose 122 H Calcium 8.8 Urine Opiates Screen Urine Methadone Screen Ur Barbiturates Screen Ur Phencyclidine Scrn Ur Amphetamines Screen U Methamphetamin-MDMA U Benzodiazepines Scrn Urine Cocaine Screen U Cannabinoids Screen Ur Drug Screen Comment Ethyl Alcohol < 3.0 06/12/21 23:00 WBC RBC Hgb Hct MCV MCH MCHC RDW Std Deviation RDW Coeff of Jayshree Plt Count MPV Immature Gran % (Auto) Neut % (Auto) Lymph % (Auto) [place] % (Auto) Eos % (Auto) Baso % (Auto) Absolute Neuts (auto) Absolute Lymphs (auto) Nucleated RBC % Sodium Potassium Chloride Carbon Dioxide Anion Gap BUN Creatinine Estim Creat Clear Calc Est GFR (MDRD) Af Amer Est GFR (MDRD) Non-Af BUN/Creatinine Ratio Glucose Calcium Urine Opiates Screen NEGATIVE Urine Methadone Screen NEGATIVE Ur Barbiturates Screen NEGATIVE Ur Phencyclidine Scrn NEGATIVE Ur Amphetamines Screen POSITIVE H U Methamphetamin-MDMA POSITIVE H U Benzodiazepines Scrn NEGATIVE Urine Cocaine Screen POSITIVE H U Cannabinoids Screen NEGATIVE Ur Drug Screen Comment Ethyl Alcohol Discharge Plan Dx/Rx/DC Orders Clinical Impression: Opiate dependence, Polysubstance abuse Disposition Disposition: Acute Care [facility]
[2021-06-13] VITALS (11 sets, daily range): BP systolic 119–145; BP diastolic 56–98; PULSE 65–91; RESP 14–20; TEMP 36.4–37.2; O2SAT 93–100; BMI 28.5
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
[2021-06-13] MEDS: Naloxone 2 MG/2 ML Syringe 1 MG NASAL (00:13)
--- NOTE | 2021-06-13 00:19 | PCM.HP.STD ---
HPI - General HPI Narrative NAKUL ECHAVARRIA, is a 36 M with a significant history of ADHD; anxiety disorder who presents to emergency department for help with detoxification. Patient has been using heroin/fentanyl. He uses about 1 g of heroine per day. He has been off and on heroin/fentanyl for about 12 years. He was on Suboxone. However about 2 weeks ago he stopped taking the Suboxone. Thereafter he has been binging on heroin/fentanyl. Reportedly last time he used was a few hours before presentation. Also he snorts and inject cocaine. Reportedly initially patient was not sedated while at the emergency department. However patient went to the bathroom and because patient stayed longer at the bathroom nurses went to check on him. Nurses found him highly sedated with a spoon and concrete pouring supervisor by his side. Yet no needles was found on him. History was limited because patient was stuporous at the time of history taking. History was taken partly from emergency department doctor and partly from patient. [facility] Medical History (Updated 06/13/21 @ 01:[address] Cheikh Cisneros MD) ADHD Anxiety Home Medications clonidine HCl 0.1 mg PO DAILY 05/07/19 [History Last Taken 1 Day Ago ~05/09/19] gabapentin 400 mg PO TIDCM 05/07/19 [History Last Taken 1 Day Ago ~05/09/19] bupropion HCl 150 mg PO BID 05/10/19 [History Last Taken 1 Day Ago ~05/09/19] carbamazepine 800 mg PO BID 05/10/19 [History Last Taken 1 Day Ago ~05/09/19] Allergy/AdvReac Type Severity Reaction Status Date / Time Penicillins AdvReac Upset Verified 05/10/19 00:04 Stomach unable to obtain (Patient is stuporous) Surgical History (Updated 06/13/21 @ 01:[address] Cheikh Cisneros MD) H/O foot surgery Social History (Updated 06/12/21 @ 23:[address] Luis Armando Oro MD) Smoking Status: Current every day smoker tobacco type: cigarettes substance use type: heroin and IV drugs ROS Review of Systems ROS Unobtainable: due to encephalopathy Vital Signs Vital Signs Vital Signs: 06/12/21 21:06 06/13/21 00:17 Temperature 98.3 F Temperature Source Temporal Pulse Rate 82 89 Respiratory Rate 16 14 Blood Pressure 118/76 Blood Pressure Mean 90 Pulse Ox 98 Oxygen Delivery Method Room Air Room Air Weight Weight: 99.79 kg Body Mass Index (BMI) 29.8 Physical Exam Narrative Physical exam: General: Well-nourished, well-developed. Head: Normocephalic, atraumatic, no tenderness Eyes: PERRLA, EOMI ENT, no trauma, moist mucous membranes, no rhinorrhea Neck: Nontender, full range of motion, no spinal tenderness, deformities, step-off CVS: Regular rate and rhythm. S1-S2 present. No murmur, gallop or rub. Respiratory : clear to auscultation bilaterally, chest wall nontender, no wheezing Abdomen: Soft, nontender, nondistended, normal bowel sounds, no masses : Deferred Back: Nontender, no CVA tenderness, no midline spinal tenderness, deformities, step-offs Extremities: No edema, no cyanosis, no clubbing. Skin: Normal color, no trauma, abrasions Neuro: Stuporous. Cranial nerves II to XII is grossly intact Psychiatry: Patient is stuporous. Results Lab / Micro Data Result Diagrams: 06/12/21 22:27 06/12/21 22:27 Labs: Laboratory Results - last 24 hr 06/12/21 22:27: WBC 16.2 H, RBC 4.52 L, Hgb 12.6 L, Hct 36.7 L, MCV 81.2, MCH 27.9, MCHC 34.3, RDW Std Deviation 41.8, RDW Coeff of Jayshree 14.2, Plt Count 206, MPV 11.1, Immature Gran % (Auto) 0.400, Neut % (Auto) 74.1 H, Lymph % (Auto) 16.5 L, [place] % (Auto) 6.6, Eos % (Auto) 2.0, Baso % (Auto) 0.4, Absolute Neuts (auto) 12.0 H, Absolute Lymphs (auto) 2.67, Nucleated RBC % 0 06/12/21 22:27: Sodium 137, Potassium 3.5, Chloride 103, Carbon Dioxide 26.0, Anion Gap 8, BUN 22 H, Creatinine 1.20, Estim Creat Clear Calc 92.51, Est GFR (MDRD) Af Amer 88, Est GFR (MDRD) Non-Af 72, BUN/Creatinine Ratio 18.3, Glucose 122 H, Calcium 8.8 06/12/21 22:27: Ethyl Alcohol < 3.0 06/12/21 23:00: Urine Opiates Screen NEGATIVE, Urine Methadone Screen NEGATIVE, Ur Barbiturates Screen NEGATIVE, Ur Phencyclidine Scrn NEGATIVE, Ur Amphetamines Screen POSITIVE H, U Methamphetamin-MDMA POSITIVE H, U Benzodiazepines Scrn NEGATIVE, Urine Cocaine Screen POSITIVE H, U Cannabinoids Screen NEGATIVE, Ur Drug Screen Comment Micro: Microbiology 06/12/21 23:10 Nasal Secretion SARS-CoV-2 Antigen (Rapid) - Final Assessment & Plan Assessment/Plan (1) Desire for detoxification: PLAN: Opioid dependence Patient be started on Subutex and other adjunctive medications: Gabapentin as needed; dicyclomine as needed; Vistaril as needed; methocarbamol as needed; clonidine as needed; Imodium as needed; trazodone as needed and Zofran as needed. Hold all p.o. medication while patient is sedated. Start detox when patient is no longer sedated Monitor COWS and CINA score Tobacco abuse Counseled Nicotine patch prescribed. Cocaine abuse Counseled when appropriate. Avoid beta-blockers. Supportive treatment. DVT prophylaxis Low risk Encourage to ambulate Charges/Coding Visit Charges Inpatient E&M: 79316 Init Hosp L3
[2021-06-13 07:35] LABS: Absolute Lymphocyte Count 2.84 X10^3/uL (0.83-4.51); Absolute Neutrophil Count 9.4 X10^3/uL (2.0-7.7); Basophil# 0.07 X10^3/uL; Basophil% 0.5 % (0-1); Eosinophil# 0.37 X10^3/uL; Eosinophils% 2.7 % (0-5); Hematocrit 39.6 % (40-54); Hemoglobin 13.1 g/dL (13.0-16.5); Lymphocyte # 2.84 X10^3/ul (0.83-4.51); Lymphocyte % 20.5 % (19-41); Mean Corp Hgb Conc 33.1 g/dL (32-36); Mean Corpuscular Hgb 27.3 pg (27.0-32.0); Mean Corpuscular Volume 82.5 fL (80-94); Mean Platelet Vol. 11.4 fl (6.2-12.0); Monocyte# 1.11 X10^3/uL; NRBC Flagged by Analyzer 0 % (0-5); Neutrophil # 9.39 X10^3/uL (2.7-7.7); POSITIVE COUNT YES; RBC Distribution Width CV 14.2 % (11.6-14.6); RBC Distribution Width SD 42.8 fl (35.1-43.9); White Blood Count 13.8 K/mm3 (4.4-11.0)
[2021-06-13 07:41] LABS: Differential Indicated SCAN CRITERIA MET
[2021-06-13 08:27] LABS: Platelet Morphology CLUMPED
[2021-06-13 08:29] LABS: Platelet Estimate SLT DEC (ADEQ)
[2021-06-13] MEDS: Buprenorphine HCl 2 MG TAB.SUBL SL ×2 (10:15→18:10)
--- NOTE | 2021-06-13 11:00 | ADDICTION ---
This feature writer met with PT to conduct ASAM, MSE, DUDIT assessments and to plan for d/c. PT A+Ox4 and participated actively. All assessments completed, faxed to [facility] and placed in PT's chart. PT plans to admit to [facility] in [place] for residential treatment and follow-up counseling services if approved. PT did indicate a need for transportation post d/c from [facility]. This worker, a social worker clinical or nurse will assist with contacting [facility] for transport to residential.
--- NOTE | 2021-06-13 12:37 | PCM.PN.HOSP ---
Subjective Subjective As per nursing staff, patient was hyperactive, Cina score 6. Started on buprenorphine. When I saw the patient, patient drowsy lethargic and sleepy. Objective Data Objective Data Vital Signs: Vital Signs Temp Pulse Resp BP Pulse Ox 98.0 F 91 18 128/72 H 95 06/13/21 09:22 06/13/21 09:22 06/13/21 09:22 06/13/21 09:22 06/13/21 09:22 Oxygen Delivery Method Room Air Weight: 210 lb 12.8 oz Body Mass Index (BMI) 28.5 Lab / Micro Data Result Diagrams: 06/13/21 07:20 06/12/21 22:27 Labs: Laboratory Results - last 24 hr 06/12/21 22:27: WBC 16.2 H, RBC 4.52 L, Hgb 12.6 L, Hct 36.7 L, MCV 81.2, MCH 27.9, MCHC 34.3, RDW Std Deviation 41.8, RDW Coeff of Jayshree 14.2, Plt Count 206, MPV 11.1, Immature Gran % (Auto) 0.400, Neut % (Auto) 74.1 H, Lymph % (Auto) 16.5 L, [place] % (Auto) 6.6, Eos % (Auto) 2.0, Baso % (Auto) 0.4, Absolute Neuts (auto) 12.0 H, Absolute Lymphs (auto) 2.67, Nucleated RBC % 0 06/12/21 22:27: Sodium 137, Potassium 3.5, Chloride 103, Carbon Dioxide 26.0, Anion Gap 8, BUN 22 H, Creatinine 1.20, Estim Creat Clear Calc 92.51, Est GFR (MDRD) Af Amer 88, Est GFR (MDRD) Non-Af 72, BUN/Creatinine Ratio 18.3, Glucose 122 H, Calcium 8.8 06/12/21 22:27: Ethyl Alcohol < 3.0 06/12/21 23:00: Urine Opiates Screen NEGATIVE, Urine Methadone Screen NEGATIVE, Ur Barbiturates Screen NEGATIVE, Ur Phencyclidine Scrn NEGATIVE, Ur Amphetamines Screen POSITIVE H, U Methamphetamin-MDMA POSITIVE H, U Benzodiazepines Scrn NEGATIVE, Urine Cocaine Screen POSITIVE H, U Cannabinoids Screen NEGATIVE, Ur Drug Screen Comment 06/13/21 07:20: WBC 13.8 H, RBC 4.80, Hgb 13.1, Hct 39.6 L, MCV 82.5, MCH 27.3, MCHC 33.1, RDW Std Deviation 42.8, RDW Coeff of Jayshree 14.2, Plt Count TNP, MPV 11.4, Immature Gran % (Auto) 0.300, Neut % (Auto) 68.0, Lymph % (Auto) 20.5, [place] % (Auto) 8.0, Eos % (Auto) 2.7, Baso % (Auto) 0.5, Absolute Neuts (auto) 9.4 H, Absolute Lymphs (auto) 2.84, Nucleated RBC % 0, Platelet Estimate SLT DEC, Plt Morphology Comment CLUMPED Micro: Microbiology 06/12/21 23:10 Nasal Secretion SARS-CoV-2 Antigen (Rapid) - Final Physical Exam Narrative General: Lethargic, sleepy HEENT: Atraumatic, PERRLA, EOMI, Normocephalic Oral: No Gingival or Mucosal Lesions/ Ulcerations Neck: Supple, No JVD, Negative Carotid Bruits Lungs: Air entry diminished in bilateral lung bases. No crepitation/rhonchi Cardiovascular: Sinus rhythm, Normal S1, Normal S2, No murmurs Abdomen: Bowel Sounds Present, Soft, Non Tender, Non-Distended : No renal angle tenderness. No suprapubic tenderness. Extremities: No edema, Capillary Refill Less than 3 Seconds Skin: No rashes, No breakdown Musculoskeletal: No Tenderness to Palpation of Joints or Extremities Neurological: Cranial nerves II-XII grossly intact, DTR 2+/4 and Symmetrical, Neuro grossly intact Psych/Mental Status: Normal Affect, Appropriate. Assessment & Plan Assessment/Plan (1) Acute hyperactive opioid withdrawal delirium: PLAN: Acute opioid withdrawal syndrome with chronic opioid use, tolerance and dependence: Patient is started on buprenorphine along with other supportive medications gabapentin, dicyclomine Vistaril methocarbamol and clonidine. Monitor COWS and CINA score. 2. Chronic smoking with tobacco use and dependence: Nicotine patch 3. Crack cocaine use and dependence: Patient U tox positive of crack cocaine, methamphetamine, and amphetamine. VTE prophylaxis: Low risk early ambulation encouraged.
[2021-06-13] MEDS: Methocarbamol 750 MG Tablet 1500 MG PO ×2 (14:07→21:41)
[2021-06-13] MEDS: Dicyclomine 10 MG Capsule 20 MG PO (14:07)
[2021-06-13] MEDS: cloNIDine HCl 0.1 MG Tablet PO (14:08)
[2021-06-13] MEDS: Ondansetron 8 MG Tablet PO (14:08)
[2021-06-13] MEDS: hydrOXYzine PAM 25 MG Capsule 50 MG PO (21:41)
[2021-06-13] MEDS: Acetaminophen 325 MG Tablet 650 MG PO (21:41)
[2021-06-14 01:56] VITALS: BP 103/64; PULSE 78; RESP 16; TEMP 36.5; O2SAT 98
[2021-06-14] MEDS: Buprenorphine HCl 2 MG TAB.SUBL SL ×3 (01:57→18:37)
[2021-06-14 08:00] VITALS: BP 127/71; PULSE 89; RESP 16; TEMP 36.6; O2SAT 100
[2021-06-14 08:08] VITALS: O2SAT 96
[2021-06-14] MEDS: Gabapentin 300 MG Capsule PO (09:46)
[2021-06-14] MEDS: hydrOXYzine PAM 25 MG Capsule 50 MG PO ×2 (09:46→22:37)
[2021-06-14] MEDS: Methocarbamol 750 MG Tablet 1500 MG PO (09:46)
[2021-06-14] MEDS: cloNIDine HCl 0.1 MG Tablet PO ×2 (09:46→22:36)
--- NOTE | 2021-06-14 13:19 | PN.HOSP_ITS ---
Subjective Subjective Patient is lethargic. Sleeping but he woke up readily. As per nursing staff, he is asking for gabapentin home dose 800 mg 3 times daily, Klonopin and mirtazapine. Objective Data Objective Data Vital Signs: Vital Signs Temp Pulse Resp BP Pulse Ox 97.8 F 89 16 127/71 H 96 06/14/21 08:00 06/14/21 08:00 06/14/21 08:00 06/14/21 08:00 06/14/21 08:08 Oxygen Delivery Method Room Air Weight: 210 lb 12.8 oz Body Mass Index (BMI) 28.5 Lab / Micro Data Result Diagrams: 06/13/21 07:20 06/12/21 22:27 Micro: Microbiology 06/12/21 23:10 Nasal Secretion SARS-CoV-2 Antigen (Rapid) - Final Physical Exam Narrative General: Lethargic, sleepy. Intermittent awakening and gets agitated and restless HEENT: Atraumatic, PERRLA, EOMI, Normocephalic Oral: No Gingival or Mucosal Lesions/ Ulcerations Neck: Supple, No JVD, Negative Carotid Bruits Lungs: Air entry diminished in bilateral lung bases. No crepitation/rhonchi Cardiovascular: Sinus rhythm, Normal S1, Normal S2, No murmurs Abdomen: Bowel Sounds Present, Soft, Non Tender, Non-Distended : No renal angle tenderness. No suprapubic tenderness. Extremities: No edema, Capillary Refill Less than 3 Seconds Skin: No rashes, No breakdown Musculoskeletal: No Tenderness to Palpation of Joints or Extremities Neurological: Cranial nerves II-XII grossly intact, DTR 2+/4 and Symmetrical, N euro grossly intact Psych/Mental Status: Flat affect. Assessment & Plan Assessment/Plan (1) Acute hyperactive opioid withdrawal delirium: PLAN: 1. Acute opioid withdrawal syndrome with chronic opioid use, tolerance and dependence: Patient is started on buprenorphine along with other supportive medications gabapentin, dicyclomine Vistaril methocarbamol and clonidine. Monitor COWS and CINA score. 06/14: Gabapentin changed to home dose. As patient is on multiple anxiolytic and antidepressant medication seizure-like buprenorphine, trazodone, hydroxyzine, methocarbamol therefore mirtazapine and Klonopin were held. His home medication bupropion was continued 2. Chronic smoking with tobacco use and dependence: Nicotine patch 3. Crack cocaine use and dependence: Patient U tox positive of crack cocaine, methamphetamine, and amphetamine. VTE prophylaxis: Low risk early ambulation encouraged. Charges/Coding Visit Charges Inpatient E&M: 35520 Subs Hosp L2
--- NOTE | 2021-06-14 13:26 | CASEMGMT ---
Social Work Note Pt is RAMP pt. SW aware that pt's address is [facility] [address]. SW spoke with Carole, Addiction Therapist. Pt plans on going to residential treatment, which will provide housing for pt, and then will assist pt with further housing assistance/resources. Kia Walker [employer] LOADER, PATIENT SUPPORT ASSOCIATE
[2021-06-14 14:35] VITALS: BP 134/96; PULSE 102; RESP 16; TEMP 36.6; O2SAT 100
[2021-06-14] MEDS: buPROPion (XL) 300 MG TABLET.XL PO (15:23)
[2021-06-14] MEDS: Gabapentin 400 MG Capsule 800 MG PO ×2 (15:24→22:36)
[2021-06-14] MEDS: Nicotine Polacrilex 2 MG GUM PO ×2 (15:24→22:54)
[2021-06-14 22:48] VITALS: BP 126/78; PULSE 81; RESP 16; TEMP 36.9; O2SAT 98
[2021-06-15] MEDS: Buprenorphine HCl 2 MG TAB.SUBL SL ×2 (02:03→09:37)
[2021-06-15 02:06] VITALS: BP 125/74; PULSE 75; RESP 16; TEMP 36.7; O2SAT 100
[2021-06-15] MEDS: Acetaminophen 325 MG Tablet 650 MG PO (03:41)
[2021-06-15] MEDS: Methocarbamol 750 MG Tablet 1500 MG PO (03:41)
[2021-06-15 07:15] VITALS: O2SAT 95
[2021-06-15 09:10] VITALS: BP 148/72; PULSE 80; RESP 16; TEMP 36.9; O2SAT 94
[2021-06-15] MEDS: Gabapentin 400 MG Capsule 800 MG PO ×2 (09:33→12:00)
[2021-06-15] MEDS: buPROPion (XL) 300 MG TABLET.XL PO (09:34)
[2021-06-15] MEDS: Nicotine Polacrilex 2 MG GUM PO (10:42)
--- NOTE | 2021-06-15 10:57 | PCM.DC ---
Discharge Instructions Diet Discharge Diet: No restrictions Activity Discharge Activity: - (Going to inpatient drug rehab) Dressing / Incision Call your doctor if you observe: Fever of 101 or Higher, Coldness, Increased Pain, Numbness or Tingling, Change in Color, Inability to urinate, Inability to have a bowel movement, Shortness of breath, Dizziness, Fainting spells, Swelling in the ankles, Chest pain, Prolonged hiccupping, Increased palpitations (irregular heartbeat), Calf discomfort and Uncontrolled pain Follow Up Care Test Results: Test results from this visit will be discussed in further detail at your follow-up appointment, if applicable. Discharge Plan Admission Admit Date/Time: 06/13/21 00:19 Primary Reason for Your Visit: Acute opioid withdrawal syndrome Attending Provider: Segundo Bradford Primary Care Provider: Care PhysicianNadine Primary Discharge Orders/Prescriptions Prescriptions: New nicotine (polacrilex) 2 mg Gum 2 mg PO Q2H PRN PRN (Reason: NICTOINE WITHDRAWAL) Qty: 0 RF: 0 nicotine 21 mg/24 hr Patch 24 Hour 21 mg transdermal DAILY Qty: 0 RF: 0 Continued clonidine HCl 0.1 MG tablet 0.1 mg PO DAILY RF: 0 gabapentin 400 MG capsule 800 mg PO TIDCM RF: 0 bupropion HCl 150 MG tablet extended release 24 hr 300 mg PO DAILY RF: 0 clonazepam 1 mg tablet 1 mg PO BID RF: 0 dextroamphetamine-amphetamine [Adderall] 30 mg Tablet 30 mg PO DAILY RF: 0 mirtazapine 45 mg Tablet 45 mg PO QHS RF: 0 atomoxetine [Strattera] 60 mg Capsule 60 mg PO DAILY RF: 0 Referrals / Follow Up: Care Physician,No Primary [Primary Care Provider] - In 1 Week Disposition Disposition (needs filled in before D/C Order can be placed): Home, Self Care
--- NOTE | 2021-06-15 11:00 | DS.PCM_ITS ---
Providers Date of Admission: 06/13/21 Primary Care Physician: No Primary Care Phys Reason For Visit: OPIOID ABUSE Diagnosis Discharge Diagnosis (1) Acute hyperactive opioid withdrawal delirium: Status: Acute Code(s): F11.23 - Opioid dependence with withdrawal Medications at Discharge Home Medications clonidine HCl 0.1 mg PO DAILY 05/07/19 gabapentin 800 mg PO TIDCM 05/07/19 bupropion HCl 300 mg PO DAILY 05/10/19 atomoxetine [Strattera] 60 mg PO DAILY 06/14/21 clonazepam 1 mg PO BID 06/14/21 dextroamphetamine-amphetamine [Adderall] 30 mg PO DAILY 06/14/21 mirtazapine 45 mg PO QHS 06/14/21 nicotine 21 mg TRANSDERMAL DAILY #0 ea 06/15/21 nicotine (polacrilex) 2 mg PO Q2H PRN PRN #0 ea 06/15/21 Hospital Course Summary of Care Provided Hospital Course: This 36-year-old woman admitted with acute opioid withdrawal syndrome. 1. Acute opioid withdrawal syndrome with chronic opioid use, tolerance and dependence: Patient is started on buprenorphine along with other supportive medications gabapentin, dicyclomine Vistaril methocarbamol and clonidine. Monitor COWS and CINA score. The gabapentin changed to home dose. As patient is on multiple anxiolytic and antidepressant medication seizure-like buprenor phine, trazodone, hydroxyzine, methocarbamol therefore mirtazapine and Klonopin were held. His home medication bupropion was continued. accounting advisory services manager and reached for the inpatient drug rehab and patient transferred to inpatient drug rehab. 2. Chronic smoking with tobacco use and dependence: Nicotine patch 3. Crack cocaine use and dependence: Patient U tox positive of crack cocaine, methamphetamine, and amphetamine. VTE prophylaxis: Low risk early ambulation encouraged. Discharge medication reconciliation done. Discharge follow-up instructions completed. Discharge process discussed with the patient and all questions were answered to patient's satisfaction. Total time spent, exact 35 minutes on discharge meds reconciliation, examination, coordination of care with nurses and ancillary staff, review of imaging and blood test and discussion with the patient on follow-up instructio ns Physical Exam Narrative Seen and examined. General: Awake. Intermittent restlessness and anxiety. HEENT: Atraumatic, PERRLA, EOMI, Normocephalic Oral: No Gingival or Mucosal Lesions/ Ulcerations Neck: Supple, No JVD, Negative Carotid Bruits Lungs: Air entry diminished in bilateral lung bases. No crepitation/rhonchi Cardiovascular: Sinus rhythm, Normal S1, Normal S2, No murmurs Abdomen: Bowel Sounds Present, Soft, Non Tender, Non-Distended : No renal angle tenderness. No suprapubic tenderness. Extremities: No edema, Capillary Refill Less than 3 Seconds Skin: No rashes, No breakdown Musculoskeletal: No Tenderness to Palpation of Joints or Extremities Neurological: Cranial nerves II-XII grossly intact, DTR 2+/4 and Symmetrical, Neuro grossly intact Psych/Mental Status: Flat affect. Weight / BMI Weight Weight: 210 lb 12.8 oz Body Mass Index (BMI) 28.5 ABG / Lab / Microbiology Data Result Diagrams: 06/13/21 07:20 06/12/21 22:27 Microbiology: Microbiology 06/12/21 23:10 Nasal Secretion SARS-CoV-2 Antigen (Rapid) - Final D/C Instructions Discharge Diet: No restrictions Call your doctor if you observe: Fever of 101 or Higher, Coldness, Increased Pain, Numbness or Tingling, Change in Color, Inability to urinate, Inability to have a bowel movement, Shortness of breath, Dizziness, Fainting spells, Swelling in the ankles, Chest pain, Prolonged hiccupping, Increased palpitations (irregular heartbeat), Calf discomfort and Uncontrolled pain Meaningful Use Info Meaningful Use Diagnoses (Choose all that apply): None applicable Discharge Plan Admission Admit Date/Time: 06/13/21 00:19 Primary Reason for Your Visit: Acute opioid withdrawal syndrome Attending Provider: Segundo Bradford Primary Care Provider: Care Physician,Nadine Primary Discharge Orders/Prescriptions Prescriptions: New nicotine (polacrilex) 2 mg Gum 2 mg PO Q2H PRN PRN (Reason: NICTOINE WITHDRAWAL) Qty: 0 RF: 0 nicotine 21 mg/24 hr Patch 24 Hour 21 mg transdermal DAILY Qty: 0 RF: 0 Continued clonidine HCl 0.1 MG tablet 0.1 mg PO DAILY RF: 0 gabapentin 400 MG capsule 800 mg PO TIDCM RF: 0 bupropion HCl 150 MG tablet extended release 24 hr 300 mg PO DAILY RF: 0 clonazepam 1 mg tablet 1 mg PO BID RF: 0 dextroamphetamine-amphetamine [Adderall] 30 mg Tablet 30 mg PO DAILY RF: 0 mirtazapine 45 mg Tablet 45 mg PO QHS RF: 0 atomoxetine [Strattera] 60 mg Capsule 60 mg PO DAILY RF: 0 Referrals / Follow Up: Care Physician,No Primary [Primary Care Provider] - In 1 Week Disposition Disposition (needs filled in before D/C Order can be placed): Home, Self Care Charges/Coding Visit Charges Inpatient E&M: 68848 Disch Hosp
== END 2021-06-15 13:05 | disposition home or self-care (01) ==
LOC: ED 06-13 00:13 → MS3 06-13 07:24
PROVIDERS: Admitting Provider Hospitalist; Emergency Provider Emergency Medicine; Visit Provider Internal Medicine
DX: F11.23 Opioid dependence with withdrawal (principal); F90.9 Attention-deficit hyperactivity disorder, unspecified type; F41.9 Anxiety disorder, unspecified; Z79.899 Other long term (current) drug therapy; F17.210 Nicotine dependence, cigarettes, uncomplicated; F14.20 Cocaine dependence, uncomplicated
CPT/HCPCS: 36415; 80048; 80307; 82077; 85025; 87426; 99281; 99406; H0012